=== PATIENT | female | born 1990 | race African-American/Black ===

== ENCOUNTER 2017-11-18 07:36 | Emergency (ER) | payer MEDICAID ==
[2017-11-18] MEDS ORDERED: IPRATRPIUM/ALBUTEROL 0.5/2.5MG 3 ML NEBU. (07:50)
[2017-11-18] MEDS ORDERED: ALBUTEROL SULFATE 2.5 MG/3 ML NEBU. ×2 (07:50→07:57)
[2017-11-18 07:56] LABS: URINE HCG POC HCG NEGATIVE (Negative)
[2017-11-18] MEDS: predniSONE 10 MG TABLET PO (08:37)
== END 2017-11-18 10:41 | disposition home or self-care (01) ==
LOC: ER 07:36
DX: J45.901 Unspecified asthma with (acute) exacerbation (principal); F31.9 Bipolar disorder, unspecified; F20.9 Schizophrenia, unspecified; F10.10 Alcohol abuse, uncomplicated; Z88.6 Allergy status to analgesic agent
CPT/HCPCS: 71046; 81025; 94640; 94644; 99285-25; J7512

== ENCOUNTER 2018-08-31 08:05 | Emergency (ER) | payer MEDICAID ==
[~2018-08-31] VITALS: Ht 158.8 cm; Wt 59.0 kg
[~2018-08-31 08:05] MED LIST: FOLI1TAB16 PO; LEVE250T30 PO; LORA10TA3 PO; ONDA4TAB10 SL; ONDA4TAB12 PO; OXYC1TAB7 PO; THIA100T57 PO
[2018-08-31 08:27] VITALS: BP 138/93
[2018-08-31] MEDS ORDERED: IBUPROFEN 200 MG TABLET. PO ONE (09:00)
[2018-08-31] MEDS ORDERED: IBUPROFEN 400 MG TABLET. PO ONE (09:00)
--- NOTE | 2018-08-31 09:09 | PHYS DOC ---
Past Medical History Past Medical History: Anxiety, Asthma, Bipolar, Depression, Schizophrenia Additional Past Medical Histor: HEAD BLEED Past Surgical History: No Surgical History Alcohol Use: Heavy Drug Use: None Adult General Chief Complaint Chief Complaint: WRIST PAIN HPI HPI 28-year-old female presents to ER via POV for complaints of mechanical fall last night. Patient states she slipped while going down a hill causing her to fall forward. Patient states she had been drinking a large amount of alcohol. She reports she is uncertain if she lost consciousness during the fall but states she was able to get up and continued drinking. She reports she is having left wrist and upper lip/facial pain. Patient states she did get some sleep last night denies any dizziness, confusion, or tinnitus. She denies nausea or vomiting. She denies incontinence of bowel or bladder during the fall. She is denying any neck or back pain. She reports she is not taking any over-the- counter medications for pain. She has some upper dental pain denies any teeth being broke or knocked out during the fall. She reports she has been ambulatory without difficulty or pain in bilateral lower extremities. She reports injury and fall occurred last night around 9 PM. LMP 3 weeks ago. Review of Systems Review of Systems Constitutional: Denies weakness/lethargy. Reports uncertain on LOC at time of fall last night Eyes: Denies change in visual acuity, redness, or eye pain [] HENT: Denies head/neck pain. Reports upper lip pain/swelling with upper front dental pain. Denies nose bleed or difficulty breathing thru bilat. nares Respiratory: Denies cough or shortness of breath [] Cardiovascular: Denies CP GI: Denies abdominal pain, nausea, vomiting, bloody stools or diarrhea [] : Denies urinary sxs. Denies incontinence bowel/bladder Musculoskeletal: Denies back/neck pain. Reports lt wrist pain with abrasion Integument: Reports abrasion lt wrist and below nose Neurologic: Denies headache, focal weakness or sensory changes. Denies dizziness /lightheadedness All other systems were reviewed and found to be within normal limits, except as documented in this note. Allergies Allergies Allergies Coded Allergies Type Severity Reaction Last Updated Verified tramadol Allergy Intermediate 05/01/15 Yes Physical Exam Physical Exam Constitutional: Well developed, well nourished, no acute distress, non-toxic appearance. Clear speech HENT: Normocephalic, atraumatic, bilateral ears normal, oropharynx moist- no obvious dental injuries, pt reports with palp. of front teeth she has pain- teeth are not loose, no oral exudates, nose normal. [] Eyes: 3mm PERRLA, EOMI- no pain with eye movements, no nystagmus, conjunctiva normal, no discharge. [] Neck: Normal range of motion, no tenderness no midline C-spine with no palpable deformity or crepitus, supple, no stridor. Trachea midline Cardiovascular: Heart rate regular rhythm, no murmur [] Lungs & Thorax: Bilateral breath sounds clear to auscultation. Resp. equal and nonlabored. No chest wall tenderness or visible injury Abdomen: Bowel sounds normal, soft- no rigidity or distention, no tenderness, no visible injury on abd Skin: Warm, dry Back: No tenderness to palpation of mid spine with no palpable deformity or visible injury on a full range of motion, no CVA tenderness. [] Extremities: Pelvis stable/nontender. No cyanosis, no clubbing, no edema. Tender on palp. lt anterior wrist- abrasion at site no active bleeding. Decreased ROM lt wrist with c/o increased pain with movement. No lt elbow/ shoulder tenderness or palp. deformity- full ROM. Rt arm exam NL with full ROM. Bilat. LE exam NL- full ROM no tenderness. 2+ radial bilat. Steady unassisted gait Neurologic: Alert and oriented X 3, normal motor function, normal sensory function, no focal deficits noted. [] Psychologic: Affect normal, judgement normal, mood normal. [] Current Patient Data Vital Signs Vital Signs Date Time Temp Pulse Resp B/P (MAP) Pulse Ox O2 Delivery O2 Flow Rate FiO2 08/31/18 08:27 98.4 91 20 138/93 (108) 95 Room Air 98.4 EKG EKG [] Radiology/Procedures Radiology/Procedures [] Course & Med Decision Making Course & Med Decision Making Pertinent Imaging studies reviewed. (See chart for details) 0855: electrocardiograph technician reports patient during x-rays pushed the roofing technician's hand away while she was obtaining images and got up and walked out of the xray room. RN reports pt walked out of the ER department with steady unassisted gait and left the hospital without informing staff. Pt left prior to other images of lt wrist and head CT being obtained. Head CT was being obtained per pt's request - she was A&Ox3 and had no focal neuro deficits on exam. Clear speech and steady gait. She had requested CT as she had previous "bleeding in the brain" and although she was feeling ok this morning she wanted the CT. Pt had denied headache, dizziness, N/V, or unsteady gait. She reported injury occurred last night at 9 p.m. and she had slept since injury and woke without feeling dizzy/ light headed. Pt eloped ER prior to this provider re-evaluating. Dragon Disclaimer Dragon Disclaimer This electronic medical record was generated, in whole or in part, using a voice recognition dictation system. Departure Departure Disposition: 07 AGAINST MEDICAL ADVICE (elopement) Referrals: NO PCP (PCP) EVE BANEGAS APRN Aug 31, 2018 09:09
--- NOTE | 2018-08-31 09:14 | RAD ---
Left wrist one view. HISTORY: Fell last evening, pain, laceration posterior wrist AP view was taken of the left wrist. The patient left AMA without additional images. A fracture is not identified on this single image. There is possible slight widening of the joint between and navicular and the lunate. Scapholunate ligament injury is possible but pattern could be within normal limits. No other osseous abnormality is noted. IMPRESSION: 1. Possible slight widening of the joint between the navicular and lunate, possible ligamentous injury. 2. No fracture noted. Electronically signed by: Marquise Jurado MD (08/31/2018 9:11 AM) [facility]
== END 2018-08-31 09:00 | disposition left against medical advice (07) ==
LOC: ER 08:05
DX: S60.812A Abrasion of left wrist, initial encounter (principal); R51 Headache; F31.9 Bipolar disorder, unspecified; F20.9 Schizophrenia, unspecified; J45.909 Unspecified asthma, uncomplicated; F10.20 Alcohol dependence, uncomplicated; Y90.9 Presence of alcohol in blood, level not specified; F41.9 Anxiety disorder, unspecified; Z88.6 Allergy status to analgesic agent; W17.81XA Fall down embankment (hill), initial encounter; Y93.89 Activity, other specified; Y92.828 Other wilderness area as the place of occurrence of the external cause; Y99.8 Other external cause status
CPT/HCPCS: 73100; 99284-25